=== PATIENT | male | born 2000 | race Caucasian/White ===

== ENCOUNTER 2024-06-07 22:29 | Emergency (ER) | payer OTHER ==
[2024-06-07 23:28] LABS: Absolute Lymphocytes (CBC) 0.4 K/uL (0.7-4.9); Absolute Monocytes 0.9 K/uL (0.1-1.3); Absolute Neutrophil 14.6 K/uL (1.8-8.0); Basophils % 0.3 % (0-1.3); Hematocrit 43.6 % (39.6-49.0); Hemoglobin 14.8 g/dL (13.6-17.9); Lymphocytes % 2.5 % (15.3-44.8); MCH 26.2 pg (27.0-35.0); MCHC 33.9 g/dL (32.0-36.0); MCV 77.4 fL (80-100); MPV 8.2 fL (7.6-11.3); Monocytes % 5.7 % (3.3-12.3); Neutrophils % 91.5 % (41.7-73.7); Platelets 370 thou/uL (152-406); RBC Red Blood Cell Count 5.64 M/uL (4.33-5.43); Red Cell Distribution Width 14.6 % (12.1-15.2)
[2024-06-07 23:32] LABS: PT Prothrombin Time 13.9 SECONDS (9.4-12.5); PTT, Activated Partial Thromb 28.1 SECONDS (24.3-36.9); Protime INR 1.25
[2024-06-07] MEDS ORDERED: NA CHLORIDE 0.9% 1,000 ML ONE (23:32)
[2024-06-07] MEDS ORDERED: LORazepam 2 MG/ML VIAL ONE (23:32)
[2024-06-07 23:35] LABS: ALT/SGPT 35 U/L (16-61); AST/SGOT 27 U/L (15-37); Albumin 4.4 g/dL (3.4-5.0); Albumin/Globulin Ratio 1.2 (1.1-1.8); Alkaline Phosphatase 65 U/L (45-117); Anion Gap 11.5 mEq/L (5.0-15.0); BUN Blood Urea Nitrogen 24 mg/dL (7-18); Bicarbonate 23 mEq/L (21-32); Bilirubin Direct 0.2 mg/dL (0-0.2); Bilirubin Indirect, Calculated 0.6 mg/dL (0.2-0.8); Bilirubin Total 0.8 mg/dL (0.2-1.0); Globulin 3.7 g/dL (2.3-3.5); Glomerular Filtration Rate 55 ml/min (=/>90); Glucose Level 152 mg/dL (74-106); Potassium 4.5 mEq/L (3.5-5.1); Protein, Total 8.1 g/dL (6.4-8.2); Sodium Level 140 mEq/L (136-145)
[2024-06-07 23:39] LABS: Benzodiazepines NEGATIVE (NEGATIVE); METHAMPHETAM POSITIVE (NEGATIVE); Methadone NEGATIVE (NEGATIVE); Phencyclidine NEGATIVE (NEGATIVE)
[2024-06-08 00:14] LABS: Opiates NEGATIVE (NEGATIVE)
[2024-06-08 00:48] LABS: Barbiturates NEGATIVE (NEGATIVE)
[2024-06-08 00:49] LABS: Cocaine NEGATIVE (NEGATIVE)
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
[2024-06-08 01:03] LABS: THC Cannibis NEGATIVE (NEGATIVE)
[2024-06-08 01:35] LABS: Band Neutrophils 4 % (0-1); Differential Total Cells Count 100; Lymphocytes 2 % (15-42); Monocytes 2 % (0-10); Reactive Lymphocytes 1 %; Segmented Neutrophils 91 % (40-80)
[2024-06-08 01:36] LABS: Blood Morphology Comment NOT SEEN (NOT SEEN); Platelet Estimate ADEQ
[2024-06-08 05:11] VITALS: TEMP 99.1
[2024-06-08 05:13] VITALS: O2SAT 100
[2024-06-08 05:20] VITALS: BP 146/89
--- NOTE | 2024-06-08 07:12 | RAD REPORT ---
EXAM: CT Head Without Intravenous Contrast CLINICAL HISTORY: Confused. TECHNIQUE: Axial computed tomography images of the head/brain without intravenous contrast. Sagittal and coron al reformatted images were created and reviewed. This CT exam was performed using one or more of the following dose reduction techniques: automated exposure control, adjustment of the mA and/or kV according to patient size, and/or use of iterative reconstruction technique. COMPARISON: No relevant prior studies available. FINDINGS: Brain: Unremarkable. No hemorrhage. No significant white matter disease. No edema. Ventricles: Unremarkable. No ventriculomegaly. Bones/joints: Remote appearing bilateral nasal bone fracture deformities. Soft tissues: Unremarkable. Sinuses: Right maxillary sinus mucus retention cyst/polyp. Mastoid air cells: Unremarkable as visualized. No mastoid effusion. IMPRESSION: No acute intracranial or extra-axial abnormality. Electronically signed by: Natalee Bowman MD 06/08/2024 12:10 AM CDT Due to temporary technical issues with the [employer]ACS[employer] reporting system, reports are being chaim d by the in-house radiologist without review as a courtesy to ensure prompt reporting the interpreting radiologist is fully responsible for the content of the report. Transcribed Date/Time: 06/08/2024 7:12 AM
--- NOTE | 2024-06-09 14:53 | EKG ---
Test Date: 2024-06-07 Test Time: 22:35:55 Entertainment Dancer: SAMAN MEASUREMENT RESULTS: Intervals: Rate: 117 FL: 146 QRSD: 70 QT: 332 QTc: 463 [place]: P: 67 FL: 146 QRS: 77 T: 85 INTERPRETIVE STATEMENTS: Sinus tachycardia Otherwise normal ECG No previous ECG available for comparison Electronically Signed On 06-09-24 14:47:10 CDT by Kingston Lei
== END 2024-06-08 04:48 | disposition home or self-care (01) ==
LOC: ER 22:29
DX: R41.82 Altered mental status, unspecified (principal); T43.625A Adverse effect of amphetamines, initial encounter
CPT/HCPCS: 36415; 70450; 80048; 80076; 80143; 80179; 80307; 82077; 85025; 85610; 85730; 93005; J7030